=== PATIENT | female | born 1960 | race Caucasian/White ===

== ENCOUNTER → 2021-03-22 | Outpatient (CLI) | payer OTHER ==
[~2021-03-22] VITALS: Ht 165.1 cm; Wt 56.9 kg
[~2021-03-22] MED LIST: DENOSUMAB 60 MG/1 ML (PROLIA) SQ SCH
[2021-03-22 11:30] VITALS: BP 107/66
== END ==
LOC: SDC 10:04
PROVIDERS: ATTEND Family Medicine
DX: M81.0 Age-related osteoporosis without current pathological fracture (principal)
CPT/HCPCS: 96372

== ENCOUNTER → 2021-04-18 | Outpatient (CLI) | payer OTHER | LOC: RAD 11:15 | PROVIDERS: ATTEND Obstetrics & Gynecology | DX: Z12.31 Encounter for screening mammogram for malignant neoplasm of breast (principal) | CPT/HCPCS: 77063; 77067 ==

== ENCOUNTER 2021-06-04 05:29 | Outpatient (CLI) | payer OTHER ==
[~2021-06-04] VITALS: Ht 162.6 cm; Wt 47.8 kg
[2021-06-04] MEDS ORDERED: MULT-593 PO (08:50)
[2021-06-04] MEDS ORDERED: MV-M1TAB20 PO (08:50)
[2021-06-04] MEDS ORDERED: CYAN250014 PO (08:50)
[2021-06-04] MEDS ORDERED: [UNRECOGNIZED DRUG - CODE] TD (08:50)
== END 2021-06-04 09:59 | disposition home or self-care (01) ==
LOC: PREOP 05:29
PROVIDERS: ATTEND Surgery
DX: Z01.818 Encounter for other preprocedural examination (principal)

== ENCOUNTER 2021-06-06 09:56 | Day surgery (SDC) | payer OTHER ==
[2021-06-06] VITALS (11 sets, daily range): BP systolic 121–134; BP diastolic 65–80
[~2021-06-06] VITALS: Ht 163 cm; Wt 48.0 kg
[~2021-06-06 09:56] MED LIST changes: +CYAN250014 PO; -DENOSUMAB 60 MG/1 ML (PROLIA) SQ SCH; +MULT-593 PO; +MV-M1TAB20 PO; +[UNRECOGNIZED DRUG - CODE] TD
--- NOTE | 2021-06-06 10:05 | Progress Note-Pre Operative ---
Pre-Operative Progress Note H&P Reviewed The H&P was reviewed, patient examined and no changes noted. Time Seen by Provider: 10:03 Date H&P Reviewed: Jun 06, 2021 Time H&P Reviewed: 10:03 Pre-Operative Diagnosis: Incarcerated right inguinal hernia, possible femoral EDIE FIELD DO Jun 06, 2021 10:05
[2021-06-06] MEDS ORDERED: LACTATED RINGERS 1,000 ML IV PRN (10:15)
[2021-06-06] MEDS ORDERED: ceFAZolin INJECTION 1,000 MG VIAL IV ONE (10:15)
[2021-06-06] MEDS ORDERED: proPOfol 200 MG/20 ML (DIPRIVAN) VIAL IV ONE (11:36)
[2021-06-06] MEDS ORDERED: MIDAZOLAM 2 MG/2 ML (VERSED) VIAL ONE (11:36)
[2021-06-06] MEDS ORDERED: fentaNYL INJ 100 MCG/2 ML AMP ONE (11:36)
[2021-06-06] MEDS ORDERED: ROCURONIUM 10 MG/ML 5 ML SYRINGE IV ONE (11:36)
[2021-06-06] MEDS ORDERED: LIDOCAINE PF 2% 5 ML (XYLOCAINE) VIAL ONE (11:36)
[2021-06-06] MEDS ORDERED: ONDANSETRON 4 MG/2 ML (SDV) Z0FRAN IVP ONE (11:45)
[2021-06-06] MEDS ORDERED: HYDROcodone/APAP 5 MG/325 MG (LORTAB) TAB PO ONE (11:45)
[2021-06-06] MEDS ORDERED: ONDANSETRON 4 MG/2 ML (SDV) Z0FRAN ONE (13:10)
[2021-06-06] MEDS ORDERED: KETOROLAC 30 MG/ML VIAL ONE (14:02)
[2021-06-06] MEDS ORDERED: NEOSTIGMINE 3 MG/3 ML VIAL ONE (14:02)
[2021-06-06] MEDS ORDERED: GLYCOPYRROLATE 0.2 MG/ML (ROBINUL) 2 ML VIAL ONE (14:02)
[2021-06-06] MEDS ORDERED: SEVOFLURANE (ULTANE) 15 ML INHAL SOLN ONE (14:21)
--- NOTE | 2021-06-06 14:29 | Progress Note-Post Operative ---
Post-Operative Progess Note Surgeon (s)/Hospital Account Manager (s) Surgeon EDIE FIELD DO Hospital Account Manager: Samara Pre-Operative Diagnosis Incarcerated right inguinal hernia, possible femoral Post-Operative Diagnosis Incarcerated right inguinal hernia Incarcerated right femoral hernia Procedure & Operative Findings Date of Procedure 06/06/21 Procedure Performed/Findings Right inguinal herniarraphy with mesh placement Right femoral herniarraphy with mesh placeement After informed consent was obtained, the patient was brought to the operating room and placed on the operating table in a supine position. She was sterilely prepped and draped in a normal fashion. Local lidocaine was used to infiltrate the skin above the umbilicus. I made an incision with #11 blade, carried down to the skin into subcutaneous tissue and then deepened down the subcutaneous tissue with Bovie electrocautery down to the fascia. Fascia was incised with Bovie electrocautery and bluntly entered the abdomen, swept a finger around, placed 0 Vicryl [id number] suture and placed limited trocar port under direct visualization. Created pneumoperitoneum, able to visualize the hernia and took a picture of this and then placed two 8 mm ports about 10 cm on either side of the midline port using a local lidocaine, 11 blade for stab incision and then advanced the robotic port under direct visualization. Once this was in, I then placed the patient in Trendelenburg and then placed the working instruments, the fenestrated bipolar and the scissors. Looked on the left side and saw early signs of inguinal hernia. I could see a direct hernia defect on the right side and took a picture of the hole in the hernia and inguinal canal. Next, I came across the peritoneum approximately 8 cm away from the hernia defect, going across laterally starting lateral about 17cm and cutting toward the median umbilical ligament. While doing this I accidentally got the epigastric vessel, controlled bleeding with the bipolar cautery to stop it. I then carefully dissected the visceral peritoneum away and down and then in the midline, went through the parietal side and dissected down to the pubic tubercle, dissecting this down carefully pushing the peritoneum away, I was able to then visualize the pubic tubercle and Tex's ligament. I went 2 cm posterior and at this point, we then had a critical view of the dissection, able to dissect 2 cm across the midline to the right side, 2 cm posterior to the Tex's ligament, able to then parietalize the round ligament and vessels right at the groove between Tex's and iliac vein and able to dissect, make sure there was no peritoneum between those two, able to see the indirect hernia space, took a picture of this, looked at the femoral space. Here I found a large hernia incarcerated with fat; able to remove this and took a picture. Then I carefully teased out the hernia sac and could visualize the indirect hernia space. Next I elected to come across the round ligament to help with ease of getting peritoneum freed up. I could clearly see the inguinal canal and the indirect space. Next I carried the posterior lateral dissection all the way out and then placed a 10 x 16cm Midwieght Bard 3DMax mesh. It laid in nicely, covered the hernia defects and the rest of the area. It was above the peritoneum, sutured it at the pubic tubercle with a 3-0 Vicryl suture and tied this off. This appeared to lay in very nicely, but I also sutured it out laterally to hold it in place. I then brought down the pneumoperitoneum to about 8 mmHg and then started closing the peritoneum. Started laterally and used a 2-0 V-lock barbed suture to start a running stitch to close the peritoneum. This was closed nicely, but there was a small hole in the peritoneum. Closed this hole with 3-0 Vicryl figure of eight and then took a picture of the closure at this point, then removed both needles had switched to a suture route salesman and driver from the scissors. The patient was then placed back supine, removed all ports under direct visual- ization, allowed pneumoperitoneum to escape and then closed the supraumbilical incision, closing the fascia with 0 Vicryl suture previously placed. Copiously irrigated all incisions and then closed the two small 8 mm incisions with two interrupted 4-0 undyed Monocryl subcuticular stitches and closed the supraumbilical incision with three interrupted undyed Monocryl subcuticular stitch. Area was cleaned and dried. Dermabond was placed. The patient tolerated the procedure. The sponge, instrument and needle counts were correct at the end of the case. Dr. Pascual assisted during this surgery by making incisions, closing incisions, helping to identify anatomy and passing/retrieving suture and needles. Anesthesia Type GET Estimated Blood Loss Estimated blood loss (mL): less than 20ml Specimens/Packing Specimens Removed none EDIE FIELD DO Jun 06, 2021 14:29
[2021-06-06] MEDS ORDERED: ACHD5005 PO (14:30)
--- NOTE | 2021-06-06 14:31 | Discharge Inst-Surgical ---
Discharge Inst-Surgical Depart Medication/Instructions New, Converted or Re-Newed RX: Transmitted to Pharmacy Patient Instructions Follow up Appt: Make appointment for 1 week. [phone] Instructions: No lifting greater than 20 pounds. No strenuous activity. May shower in 24 hours, no tub bath or soaking. Use incentive spirometer at home as directed. No Smoking Skin/Wound Care: May remove bandages in am. You need to leave the Dermabond on incision it will fall off on it's own. Symptoms to Report: Appetite Changes, Extremity Discoloration, Numbness/Tingling, Swelling Increased, Bleeding Excessive, Eyesight Changes, Pain Increased, Urine Color Change, Constipation(Persistent), Fever over 101 degree F, Pain/Pressure in chest, Urinating Difficulty, Cough Up/Vomit Blood, Heart Beat Irreg/Pounding, Pain/Pressure in jaw, Cramps in feet or legs, Lightheadedness, Pain/Pressure in shoulder, Diarrhea(Persistent), Memory Changes Suddenly, Questions/Concerns, Weight gain consecutive days, Dizziness/Fainting, Nausea/Vomiting, Shortness of Breath, Weight gain over 2 pounds If questions or concerns contact your physician Or seek help at emergency department. Activity Activity as Tolerated: Yes Activity Instructions: Avoid Stress to Incision Driving Instructions: No Driving/Refer to Dr. Borges Discharge Diet: No Restrictions Diet After 24 Hours: Clear Liquid if Nauseous If Any Problems/Questions/Issu: Contact Your Physician, Go to Emergency Room Skin/Wound Care Infection Signs and Symptoms: Increased Redness, Foul Odor of Wound, Increased Drainage, Skin Itchy or Has a Rash, Increased Swelling, Temperature Above 101 F Wound Care Comment: heating pad to shoulder or neck tonight for pain Bathing Instructions: Shower Stitches/[place]/Dermabond Dis: Dermabond Ice Pack: Ice On and Off Site EDIE FIELD DO Jun 06, 2021 14:31
[2021-06-06] MEDS ORDERED: fentaNYL INJ 100 MCG/2 ML AMP IVP ONE (14:45)
[2021-06-06] MEDS ORDERED: HYDROmorphone 2 MG/ML VIAL (DILAUDID) IV ONE (14:45)
[2021-06-06] MEDS ORDERED: PROMETHAZINE INJ 25 MG/ML (PHENERGAN) AMP IVP ONE (14:45)
[2021-06-06] MEDS ORDERED: ONDANSETRON 4 MG/2 ML (SDV) Z0FRAN IVP PRN (14:45)
--- NOTE | 2021-06-06 15:15 | Anesthesia-General Post-Op ---
General Patient Condition Mental Status/LOC: Same as Preop Cardiovascular: Satisfactory Nausea/Vomiting: Absent Respiratory: Satisfactory Pain: Controlled Complications: Absent Post Op Complications Complications None Follow Up Care/Instructions Patient Instructions None needed. Anesthesia/Patient Condition Patient Condition Patient is doing well, no complaints, stable vital signs, no apparent adverse anesthesia problems. No complications reported per nursing. ROYCE SAL CRNA Jun 06, 2021 15:15
[2021-06-06] MEDS ORDERED: HYDROcodone/APAP 5 MG/325 MG (LORTAB) TAB ONE (15:46)
== END 2021-06-06 17:00 | disposition home or self-care (01) ==
LOC: SDC 09:56
PROVIDERS: ATTEND Surgery
DX: K40.30 Unilateral inguinal hernia, with obstruction, without gangrene, not specified as recurrent (principal); K41.30 Unilateral femoral hernia, with obstruction, without gangrene, not specified as recurrent
CPT/HCPCS: 49507; 49553; 87081; C1781

== ENCOUNTER 2021-09-25 10:46 | Outpatient (CLI) | payer OTHER ==
[~2021-09-25] VITALS: Wt 48.0 kg
[~2021-09-25 10:46] MED LIST changes: +ACHD5005 PO
[2021-09-25 10:50] VITALS: BP 99/68
[2021-09-25] MEDS ORDERED: DENOSUMAB 60 MG/1 ML (PROLIA) SQ ONE (11:00)
== END 2021-09-25 11:08 | disposition home or self-care (01) ==
LOC: SDC 10:46
PROVIDERS: ATTEND Family Medicine
DX: M81.0 Age-related osteoporosis without current pathological fracture (principal)
CPT/HCPCS: 96372

== ENCOUNTER → 2022-04-19 | Outpatient (CLI) | payer OTHER ==
--- NOTE | 2022-04-19 13:14 | Diagnostic Imaging Report ---
Indication: Routine screening. Comparison is made with prior mammograms 04/18/2021 and 11/04/2016. 2-D and 3-D bilateral screening mammography was performed with CAD. Both breasts are heterogeneously dense, limiting the sensitivity of mammography. No mass or malignant-appearing microcalcifications are seen. There are benign calcifications bilaterally. Axillae are unremarkable. IMPRESSION: BI-RADS Category 2 No mammographic features suspicious for malignancy are identified. ACR BI-RADS Category 2: Benign findings. Result letter will be mailed to the patient. Note: At least 10% of breast cancer is not imaged by mammography. Dictated by: Dictated on workstation # [id number]
== END ==
LOC: RAD 10:51
PROVIDERS: ATTEND Family Medicine
DX: Z12.31 Encounter for screening mammogram for malignant neoplasm of breast (principal)
CPT/HCPCS: 77063; 77067